=== PATIENT | male | born 1990 ===

== ENCOUNTER 2019-07-07 23:16 | Inpatient (IN) | payer MEDICAID ==
[~2019-07-07] VITALS: Ht 188 cm; Wt 97.5 kg
[2019-07-08 00:41] VITALS: BP 144/92
[2019-07-08] MEDS ORDERED: ZOLPIDEM TARTRATE 10 MG TABLET PO PRN (00:45)
[2019-07-08] MEDS ORDERED: HALOPERIDOL 5 MG TABLET PO PRN (00:45)
[2019-07-08 01:49] VITALS: BP 143/85
[2019-07-08] MEDS ORDERED: ZOLPIDEM TARTRATE 10 MG TABLET ONE (02:37)
[2019-07-08] MEDS ORDERED: HALOPERIDOL 5 MG TABLET ONE (02:38)
[2019-07-08] MEDS ORDERED: [UNRECOGNIZED DRUG - REMARK] PO (03:04)
[2019-07-08] MEDS: LORazepam 2 MG TABLET PO PRN ×2 (09:38→18:09)
[2019-07-08 10:33] VITALS: BP 125/83
[2019-07-08] MEDS: OLANZapine 5 MG TABLET PO SCH (16:07)
[2019-07-08 16:30] VITALS: BP 103/72
[2019-07-09 06:17] VITALS: BP 116/71
[2019-07-09] MEDS: OLANZapine 5 MG TABLET PO SCH ×2 (08:41→16:09)
[2019-07-09 09:56] VITALS: BP 139/84
[2019-07-09 16:20] VITALS: BP 124/89
[2019-07-10 06:34] VITALS: BP 119/76
[2019-07-10 08:28] VITALS: BP 122/65
[2019-07-10] MEDS: OLANZapine 5 MG TABLET PO SCH (08:41)
[2019-07-10] MEDS: OLANZapine 10 MG TABLET PO SCH (16:02)
[2019-07-10 16:16] VITALS: BP 116/71
[2019-07-11 06:22] VITALS: BP 137/83
[2019-07-11 08:08] LABS: BASOPHILS % (AUTO) 0.3 % (0.0-2.0); EOSINOPHILS % (AUTO) 1.5 % (1.0-6.0); HEMATOCRIT 44.3 % (41-53); HEMOGLOBIN 14.6 g/dL (13.5-17.5); LYMPHOCYTES # (AUTO) 2.8 K/uL (1.0-4.8); LYMPHOCYTES % (AUTO) 38.5 % (22.0-44.0); MEAN CORPUSCULAR HEMOGLOBIN 29.1 pg (26.0-34.0); MEAN CORPUSCULAR HGB CONC 32.9 G/dL (31.0-37.0); MEAN CORPUSCULAR VOLUME 88 fL (80-100); MONOCYTES # (AUTO) 0.5 K/uL (0.1-1.0); MONOCYTES % (AUTO) 6.8 % (2.0-9.0); NEUTROPHILS # (AUTO) 3.8 K/uL (1.8-7.7); NEUTROPHILS % (AUTO) 52.9 % (40.0-70.0); PLATELET COUNT (AUTO) 179 K/uL (150-450); RED BLOOD CELL COUNT(AUTO) 5.02 MIL/uL (4.50-5.90); RED CELL DISTRIBUTION WIDTH 13.1 % (11.5-14.5)
[2019-07-11 08:12] VITALS: BP 140/98
[2019-07-11] MEDS: OLANZapine 10 MG TABLET PO SCH ×2 (08:21→16:32)
[2019-07-11 08:34] LABS: ALANINE AMINOTRANSFERASE 18 U/L (12-78); ALBUMIN 4.6 g/dL (3.4-5.0); ALKALINE PHOSPHATASE 92 U/L (46-116); ANION GAP 13 mmol/L (8-16); ASPARTATE AMINOTRANSFERASE 17 U/L (15-37); BILIRUBIN,TOTAL 0.6 mg/dL (0.1-1.0); CALCIUM, TOTAL 9.6 mg/dL (8.8-10.5); CARBON DIOXIDE 25 mmol/L (22-29); CHLORIDE 102 mmol/L (98-107); CHOL/HDL RATIO 3.8 (4.2-7.3); CHOLESTEROL 149 mg/dL (131-200); CREATININE 0.99 mg/dL (0.60-1.30); FREE T4 (FREE THYROXINE) 1.43 ng/dL (0.76-1.46); GLOMERULAR FILTR. RATE CALC > 60 mL/min (>60); GLUCOSE,RANDOM 86 mg/dL (70-110); HDL CHOLESTEROL 39 mg/dL (40-60); LDL CHOL (CALC.) 86 mg/dL (0-130); POTASSIUM 3.3 mmol/L (3.5-5.1); SODIUM SERUM 140 mmol/L (136-145); THYROID STIMULATING HORMONE 1.32 uIU/mL (0.36-3.74); TOTAL PROTEIN, SERUM 7.8 g/dL (6.4-8.2); TRIGLYCERIDES 121 mg/dL (15-150); UREA NITROGEN, BLOOD 10 mg/dL (7-18)
[2019-07-11 16:08] VITALS: BP 135/72
[2019-07-11] MEDS ORDERED: IBUPROFEN 600 MG TABLET PO PRN (18:00)
[2019-07-11] MEDS ORDERED: ACETAMINOPHEN 325 MG TABLET PO PRN (18:00)
[2019-07-11] MEDS ORDERED: POTASSIUM CHLORIDE 20 MEQ ER TABLET PO ONE (21:30)
[2019-07-12 06:02] VITALS: BP 130/78
[2019-07-12 08:19] VITALS: BP 146/74
[2019-07-12] MEDS: OLANZapine 10 MG TABLET PO SCH ×3 (08:31→09:00)
[2019-07-12 16:06] VITALS: BP 109/70
[2019-07-13 03:47] VITALS: BP 140/91
[2019-07-13 08:17] VITALS: BP 130/90
[2019-07-13] MEDS: OLANZapine 10 MG TABLET PO SCH (08:35)
[2019-07-13] MEDS ORDERED: OLAN10TA3 PO (09:56)
== END 2019-07-13 11:40 | disposition home or self-care (01) | DRG 753 ==
LOC: B2S 07-08 00:56
PROVIDERS: ADMIT Psychiatry & Neurology Psychiatry; ATTEND Psychiatry & Neurology Psychiatry
DX: F31.2 Bipolar disorder, current episode manic severe with psychotic features (principal); Z91.19 Patient's noncompliance with other medical treatment and regimen; F12.90 Cannabis use, unspecified, uncomplicated; F31.9 Bipolar disorder, unspecified; F41.9 Anxiety disorder, unspecified; Z59.0 Homelessness
CPT/HCPCS: 84439; 84443